=== PATIENT | female | born 1995 | race Two or more races ===

== ENCOUNTER 2023-08-10 17:33 | Emergency (ER) | payer BC ==
--- NOTE | 2023-08-10 17:48 | ED ---
Chest Pain HPI - General Source: patient, RN notes reviewed Mode of arrival: ambulatory Limitations: no limitations <Dmoinique Smith - Last Filed: 08/10/23 17:46> - General Source: RN notes reviewed, old records reviewed Mode of arrival: ambulatory Limitations: no limitations - History of Present Illness MD Complaint: chest pain, other (Abdominal pain) -: hour(s) Onset: during rest Pain Location: substernal, epigastric Severity: moderate Severity scale (1-10): 4 Quality: sharp Consistency: intermittent Improves With: nothing Worsens With: nothing Anginal Symptoms: nausea Treatments Prior to Arrival: none <Reji Thurston - Last Filed: 08/17/23 20:36> - General Stated Complaint: Chest Pain Time Seen by Provider: 08/10/23 17:46 - History of Present Illness Initial Comments: Quick note: Patient is a 28-year-old female presenting to the ER with chief complaint of chest pain. Patient sent here by urgent care for evaluation of chest pain. She states that started last night and describes it as a stinging sensation that goes to her back. She does endorse mild shortness of breath. She does have a history of blood clots during and is a current smoker. Denies any control, nausea, vomiting, lightheadedness, dizziness. (Dominique Smith) This is a 28-year-old female to the ER for evaluation of chest pain today, burning chest pain with nausea stating burning chest pain in her abdomen t mildly went to her back. Pain is improving here in the ER. She does states she has a history of blood clots during her and occasionally does use a vape pen. But she has no high blood pressure cholesterol diabetes, no other complaints no travel or sick contacts no fevers cough or congestion no current shortness of breath (Reji Thurston) - Related Data Allergies Allergy/AdvReac Type Severity Reaction Status Date / Time No Known Allergies Allergy Verified 08/10/23 19:43 Review of Systems ROS Other: All systems not noted in ROS Statement are negative. <Dominique Smith - Last Filed: 08/10/23 17:46> ROS Other: All systems not noted in ROS Statement are negative. <Reji Thurston - Last Filed: 03/14/24 20:36> ROS Statement: Those systems with pertinent positive or pertinent negative responses have been documented in the HPI. General Exam <Dominique Smith - Last Filed: 08/10/23 17:46> General appearance: alert, in no apparent distress Head exam: Present: atraumatic, normocephalic, normal inspection Eye exam: Present: normal appearance, PERRL, EOMI. Absent: scleral icterus, conjunctival injection, periorbital swelling ENT exam: Present: normal exam, mucous membranes moist Neck exam: Present: normal inspection. Absent: tenderness, meningismus, lymphadenopathy Respiratory exam: Present: normal lung sounds bilaterally. Absent: respiratory distress, wheezes, rales, rhonchi, stridor Cardiovascular Exam: Present: regular rate, normal rhythm, normal heart sounds. Absent: systolic murmur, diastolic murmur, rubs, gallop, clicks GI/Abdominal exam: Present: soft, normal bowel sounds. Absent: distended, tenderness, guarding, rebound, rigid Extremities exam: Present: normal inspection, full ROM, normal capillary refill. Absent: tenderness, pedal edema, joint swelling, calf tenderness Back exam: Present: normal inspection Neurological exam: Present: alert, oriented X3, CN II-XII intact Psychiatric exam: Present: normal affect, normal mood Skin exam: Present: warm, dry, intact, normal color. Absent: rash <Reji Thurston - Last Filed: 08/17/23 20:36> - General Exam Comments Initial Comments: Visual Physical Exam Vital signs reviewed General: Well-appearing, nontoxic, no acute distress. Head: Normocephalic, atraumatic Eyes: PERRLA, EOMI ENT: Airway patent Chest: Nonlabored breathing Skin: No visual rash, normal skin tone Neuro: Alert and oriented 3 Musculoskeletal: No gross abnormalities (Dominique Smith) Course <Reji Thurston - Last Filed: 08/17/23 20:36> Vital Signs 08/10/23 18:04 Temperature 98.0 F Pulse Rate 91 Respiratory 18 Rate Blood Pressure 152/94 O2 Sat by Pulse 100 Oximetry - Reevaluation(s) Reevaluation #1: 08/10/23 20:32 Medical records reviewed (Reji Thurston) Reevaluation #2: 08/10/23 20:33 Patient symptoms improved (Reji Thurston) Reevaluation #3: 08/10/23 20:33 Patient informed of results and questions answered (Reji Thurston) Reevaluation #4: 08/10/23 20:33 Was pt. sent in by a medical professional or institution (TADEO Mora, BOX FOLDING MACHINE OPERATOR, urgent care, hospital, or halfway...) When possible be specific @ -no Did you speak to anyone other than the patient for history (EMS, parent, family, police, friend...)? What history was obtained from this source @ -no Did you review nursing and triage notes (agree or disagree)? Why? @ -agree Are old charts reviewed (outside hosp., previous admission, EMS record, old EKG, old radiological studies, urgent care reports/EKG's, halfway records)? Report findings @ -yes Differential Diagnosis (chest pain, altered mental status, abdominal pain women, abdominal pain men, vaginal bleeding, weakness, fever, dyspnea, syncope, headache, dizziness, GI bleed, back pain, seizure, CVA, palpatations, mental health, musculoskeletal)? @ -prior EKG interpreted by me (3pts min.). @ -no X-rays interpreted by me (1pt min.). @ -yes negative for acute disease CT interpreted by me (1pt min.). @ -no U/S interpreted by me (1pt. min.). @ -no What testing was considered but not performed or refused? (CT, X-rays, U/S, labs)? Why? @ -none What meds were considered but not given or refused? Why? @ -none Did you discuss the management of the patient with other professionals (professionals i.e. TADEO Mora, BOX FOLDING MACHINE OPERATOR, lab, RT, psych nurse, social media project manager, wash and greaser, teacher, business banking officer, case filler)? Give summary @ -no Was smoking cessation discussed for >3mins.? @ -no Was critical care preformed (if so, how long)? @ -no Were there social determinants of health that impacted care today? How? (Homelessness, low income, unemployed, alcoholism, drug addiction, transportation, low edu. Level, literacy, decrease access to med. care, [facility], rehab)? @ -none Was there de-escalation of care discussed even if they declined (Discuss DNR or withdrawal of care, Hospice)? DNR status @ -no What co-morbidities impacted this encounter? (DM, HTN, Smoking, COPD, CAD, Cancer, CVA, ARF, Chemo, Hep., AIDS, mental health diagnosis, sleep apnea, morbid obesity)? @ -none Was patient admitted / discharged? Hospital course, mention meds given and route, prescriptions, significant lab abnormalities, going to OR and other pertinent info. @ - 28 female to ER with nonspecific chest pain burning epigastric gastritis type chest pain with x-ray here in the ER, patient can be discharged home Discharged Undiagnosed new problem with uncertain prognosis? @ -no Drug Therapy requiring intensive monitoring for toxicity (Heparin, Nitro, Insulin, Cardizem)? @ -no Were any procedures done? @ -no Diagnosis/symptom? @ -Chest pain Acute, or Chronic, or Acute on Chronic? @ -Acute Uncomplicated (without systemic symptoms) or Complicated (systemic symptoms)? @ -Complicated Side effects of treatment? @ -no Exacerbation, Progression, or Severe Exacerbation? @ -exacerbation Poses a threat to life or bodily function? How? (Chest pain, [place], VT, pneumonia, PE, COPD, DKA, ARF, appy, cholecystitis, CVA, Diverticulitis, Homicidal, Suicidal, threat to staff... and all critical care pts) @ -yes w chst pain (Reji Thurston) Reevaluation #5: Differential Chest Pain: Stable Angina, Unstable Angina, STEMI, NSTEMI Aortic Dissection, Pneumothorax, Musculoskeletal, Esophageal Spasm GERD, Cholecystitis, Pancreatitis, Zoster, this is not meant to be an all-inclusive list. (Reji Thurston) Chest Pain MDM <Dominique Smith - Last Filed: 08/10/23 17:46> <Reji Thurston - Last Filed: 08/17/23 20:36> - MDM I performed the quick note portion of this chart. Electronically signed by Dominique Smith PA-C (Dominique Smith) 28 female to ER with nonspecific chest pain burning epigastric gastritis type ch est pain with normal EKG and x-ray here in the ER, patient can be discharged home (Reji Thurston) Disposition <Dominique Smith - Last Filed: 08/10/23 17:46> Is patient prescribed a controlled substance at d/c from ED?: No Time of Disposition: 20:00 <Reji Thurston - Last Filed: 08/17/23 20:36> Clinical Impression: Atypical chest pain, Chest pain, Gastritis Disposition: HOME SELF-CARE Condition: Good Instructions (If sedation given, give patient instructions): Gastritis (ED) Referrals: None,Stated [Primary Care Provider] - 1-2 days
[2023-08-10 18:30] VITALS: BP 152/94; PULSE 91; RESP 18; TEMP 98
--- NOTE | 2023-08-10 19:31 | XR ---
EXAMINATION: XR chest 2V: 08/10/2023 7:00 PM CLINICAL INDICATION: Chest Pain TECHNIQUE: Departmental protocol COMPARISON: None FINDINGS: The lungs are clear. The pleural spaces are negative. The cardiac silhouette is not enlarged. The remainder of the mediastinal silhouette is unremarkable. The skeletal structures and soft tissues are negative for acute findings. IMPRESSION: No acute radiographic process.
[2023-08-10] MEDS: MAG HYDROX/AL HYDROX/SIMETH 30 ML, HYOSCYAMINE ELIXIR 10 ML, LIDOCAINE VISCOUS 2% 10 ML PO STA (20:14)
== END 2023-08-10 21:08 | disposition home or self-care (01) ==
LOC: EC 17:33
DX: R07.89 Other chest pain (principal); K29.70 Gastritis, unspecified, without bleeding; Z87.891 Personal history of nicotine dependence
CPT/HCPCS: 71046; 99285